=== PATIENT | male | born 1930 | race Caucasian/White ===

== ENCOUNTER 2019-07-13 18:10 | Emergency (ER) | payer OTHER ==
[~2019-07-13] VITALS: Ht 177.8 cm; Wt 88.5 kg
[2019-07-13] MEDS ORDERED: AUGMENTIN 875-1 EACH PO (18:24)
[2019-07-13] MEDS ORDERED: ALLEGRA ALLERG180 MG PO (18:24)
[2019-07-13] MEDS ORDERED: COLACE100 MG PO (18:25)
[2019-07-13] MEDS ORDERED: BENTYL 10 MG CA10 M1 PO (18:25)
[2019-07-13] MEDS ORDERED: FLORASTOR250 MG PO (18:25)
[2019-07-13] MEDS ORDERED: MILK OF MA400 MG/5 M PO (18:26)
[2019-07-13] MEDS ORDERED: MOBIC7.5 MG PO (18:26)
[2019-07-13] MEDS ORDERED: LIPITOR20 MG PO (18:26)
[2019-07-13] MEDS ORDERED: LEVO-T100 MCG PO (18:26)
[2019-07-13] MEDS ORDERED: TYLENOL WITH CO1 TA1 PO (18:27)
[2019-07-13] MEDS ORDERED: PRILOSEC OTC20 MG PO (18:27)
[2019-07-13] MEDS ORDERED: TRAMADOL 50 MG50 MG PO (18:27)
[2019-07-13] MEDS ORDERED: TYLENOL325 M1 PO (18:28)
[2019-07-13 19:03] LABS: ABSOLUTE BASOPHILS 0.1 thou/uL (0.0-0.2); ABSOLUTE EOSINOPHILS 0.2 thou/uL (0.0-0.7); ABSOLUTE LYMPHOCYTES 1.3 thou/uL (0.8-5.3); ABSOLUTE NEUTROPHILS 4.8 thou/uL (1.6-8.1); BASOPHILS 0.9 %; EOSINOPHILS 2.2 %; HEMATOCRIT 30.2 % (42.0-52.0); HEMOGLOBIN 10.6 gm/dL (14.0-18.0); MCH 33.7 pg (26.0-34.0); MCHC 35.3 g/dL (28.0-37.0); MCV 95.5 fL (80.0-100.0); MONOCYTES 13.1 %; MPV 7.7 fl. (7.2-11.1); NUCLEATED RBCS 0 /100WBC; PLATELET COUNT* 275 thou/uL (150-400); POLYS 65.8 %; RBC 3.16 mil/uL (4.50-6.00); RDW-CV 14.2 % (10.5-14.5); WBC 7.3 thou/uL (4.0-11.0)
[2019-07-13 19:07] LABS: INR 1.1; PROTIME 11.6 Seconds (9.20-11.50)
[2019-07-13 19:09] LABS: CALCIUM 9.6 mg/dL (8.5-10.1); CREATININE 1.2 mg/dL (0.6-1.3)
[2019-07-13 19:21] LABS: ALBUMIN 3.1 g/dL (3.4-5.0); TOTAL BILIRUBIN 0.4 mg/dL (<0.1-1.0); TOTAL PROTEIN 7.9 g/dL (6.4-8.2)
[2019-07-13 19:30] VITALS: BP 147/84
[2019-07-13 19:36] LABS: URINE BILIRUBIN NEGATIVE (Negative); URINE BLOOD 2+ (Negative); URINE CLARITY CLEAR; URINE COLOR YELLOW; URINE GLUCOSE-RANDOM NEGATIVE (Negative); URINE KETONES NEGATIVE (Negative); URINE LEUKOCYTES-REFLEX TRACE (Negative); URINE NITRITE-REFLEX NEGATIVE (Negative); URINE PROTEIN 2+ (Negative); URINE UROBILINOGEN 0.2 E.U./dl (0.2-1.0)
[2019-07-13 19:42] LABS: FINE GRANULAR CASTS 0-3 Few /LPF (None Seen); SQUAMOUS 0-3 Few /LPF (0-3); URINE WBC-REFLEX 0-5 Rare /HPF (0-5)
[2019-07-13 19:43] LABS: AMORPHOUS PHOSPHATES Few /LPF (None Seen); URINE RBC 0-2 Rare /HPF (0-2)
--- NOTE | 2019-07-14 16:55 | EKG ---
[place] [address] ELECTROCARDIOGRAM REPORT Name: CATHY BUCHANAN Room: [facility]#: [id number] Admission: 07/13/19 Attend Phys: Discharge: 07/13/19 Date of : [birth year] Report #: [id number] THIS REPORT FOR: //name// [facility] ED Test Date: 2019-07-13 Test Time: 18:33:01 Pat Name: CATHY BUCHANAN Department: Room: Gender: M Care Services Manager: : 1930 Requested By: Ashwin Wiseman Order Number: [id number] MD: Gage Bobo Measurements Intervals [place] Rate: 68 P: OK: QRS: 13 QRSD: 80 T: 35 QT: 431 QTc: 459 Interpretive Statements Normal sinus rhythm Anteroseptal infarct, age indeterminate Baseline wander in lead(s) I,II,III,aVR,aVF,V1,V2,V3,V4,V5,V6 No previous ECG available for comparison Electronically Signed On 07-14-2019 16:55:05 REFERENCE AND INSTRUCTION LIBRARIAN by Gage Bobo [email or web address] <ELECTRONICALLY SIGNED> By: Gage Bobo MD, FACC 07/14/19 1655 1833 1833 Gage Bobo MD, FACC /EPI
== END 2019-07-13 22:03 | disposition home or self-care (01) ==
LOC: M.ERS 18:10
PROVIDERS: Emergency Medicine
DX: R53.1 Weakness (principal); R41.0 Disorientation, unspecified